=== PATIENT | male | born 1975 | race Caucasian/White ===

== ENCOUNTER 2022-09-28 10:39 | Emergency (ER) | payer OTHER, SELFPAY ==
--- NOTE | ~2022-09-28 | XR_ITS ---
XR chest 2V DATE: 09/28/2022 11:38 INDICATION: Cough. Set of lung crackles past 2 days TECHNIQUE: PA and lateral views COMPARISON: None FINDINGS: Status post anterior cervical spine surgical fusion Normal heart size. No hilar or mediastinal enlargement. No pulmonary infiltrate or consolidation, ple ural effusion or pulmonary vascular congestion or pneumothorax is detected. IMPRESSION: No active cardiac pulmonary disease Reviewed, dictated and finalized at location A.
[2022-09-28 10:45] VITALS: BP 148/92; PULSE 98; RESP 16; TEMP 36.6; O2SAT 100
--- NOTE | 2022-09-28 12:24 | ED.URI ---
HPI - URI/Sore Throat General Chief Complaint: Upper Respiratory Infection Stated Complaint: WHEEZING Time Seen by Provider: 09/28/22 11:55 Source: patient Mode of arrival: ambulatory Limitations: no limitations History of Present Illness HPI Narrative: 47-year-old male presents today with complaints of 6 weeks of cough. Patient also states that today he started crackling he noise in his lungs. Patient previously treated by his primary physician. Patient states about 2 weeks ago he was on amoxicillin, and last week he was on prednisone. Noticed some improvement on the prednisone but still not feeling well. Patient's at the bedside at this time. Patient does have history of pneumonia and was told that he is more likely to get pneumonia again in the future. Patient denies any fevers, body aches, chills, sick contacts. Does endorse runny nose, postnasal drip, cough worse when laying down. Pertinent past history: pneumonia Onset (ago): week(s) (6) Review of Systems Review of Systems: CONSTITUTIONAL: Denies fever, chills, or sweats. EYES: Denies visual changes, redness, or discharge. ENT: Rhinorrhea. congestion, sore throat, or otalgia. CARDIOVASCULAR: Denies chest pain, palpitations, or edema. RESPIRATORY: Cough but denies dyspnea. GASTROINTESTINAL: Denies abdominal pain, nausea, vomiting, or diarrhea. Exam Narrative: GENERAL: Well-appearing, well-nourished, and in no acute distress. HEAD: Normocephalic, atraumatic. EYES: PERRLA and EOMI. ENT: Nares clear, no rhinorrhea or epistaxis. Mucous membranes moist. Oropharynx without tonsillar hypertrophy exudate or other lesions. Bilateral TMs pearly becerril nonbulging NECK: Supple. No adenopathy or masses. CHEST: Wheezing throughout. No respiratory distress. No wheezes rales or rhonchi HEART: Regular rate and rhythm. No murmur heard. Normal peripheral pulses. Course Course Emergency Course: Chest x-ray shows no acute process. Reviewed chest x-ray with patient. Discussed possibility of bronchitis for seasonal allergies. Discussed treatment with antibiotics, steroids, prednisone. Patient in agreement with plan of care will be discharged home. Vital Signs Vital signs: Vital Signs Temperature 97.8 F 09/28/22 10:45 Pulse Rate 98 09/28/22 10:45 Respiratory Rate 16 09/28/22 10:45 Blood Pressure 148/92 H 09/28/22 10:45 Pulse Oximetry 100 09/28/22 10:45 Oxygen Delivery Room Air 09/28/22 10:45 Temperature 97.8 F 09/28/22 10:45 Pulse Rate 98 09/28/22 10:45 Respiratory Rate 16 09/28/22 10:45 Blood Pressure 148/92 H 09/28/22 10:45 Pulse Oximetry 100 09/28/22 10:45 Oxygen Delivery Room Air 09/28/22 10:45 MDM - URI/Sore Throat MDM Narrative Medical decision making narrative: 47-year-old male HPI as noted. Chest x-ray to rule out pneumonia. Chest x-ray shows no cardiopulmonary acute process. Suspect bronchitis/allergies. Will treat patient with azithromycin, prednisone, Flonase. Follow-up with primary as needed. Return with any new or worsening concerns. Differential Diagnosis Differential diagnosis: Likely upper respiratory infection, sinusitis, viral infection and bronchitis Medical Records Attestation: I reviewed the patient's medical records. Discharge Plan Discharge Clinical Impression: Upper respiratory infection, Bronchitis Patient Disposition: Home, Self-Care Condition: Stable Instructions: Antibiotic Form, Acute Bronchitis (ED) Additional Instructions: Medication as prescribed. Follow-up with your primary care provider in 1 week. Return with any new or worsening concerns. Prescriptions: New azithromycin 250 mg tablet See Rx Instructions .ROUTE .COMPLEX Qty: 6 0RF Rx Instructions: For 250 mg dose pack: take 500 mg today (day 1), then 250 mg for 4 days (days 2-5) albuterol sulfate 90 mcg/actuation aerosol powdr breath activated 2 inh inhalation Q4-6H PRN (Reason: shortness o
== END 2022-09-28 12:32 | disposition home or self-care (01) ==
PROVIDERS: Emergency Provider Nurse Practitioner Family; PCP Physician Assistant
DX: J06.9 Acute upper respiratory infection, unspecified (principal); J40 Bronchitis, not specified as acute or chronic
CPT/HCPCS: 71046; 99283